=== PATIENT | male | born 1980 | race American Indian/Alaskan Native ===

== ENCOUNTER 2017-01-17 19:32 | Emergency (ER) | payer MEDICARE, MEDICAID ==
[2017-01-17 19:43] VITALS: BP 125/60; PULSE 64; RESP 18; TEMP 97.5; O2SAT 100
--- NOTE | 2017-01-17 20:40 | ED PDOC ---
HPI: Headache Time Seen by Provider: 01/17/17 19:44 Chief Complaint (Nursing): Headache Chief Complaint (Provider): Headache History Per: Patient History/Exam Limitations: no limitations Onset/Duration Of Symptoms: Days (2) Current Symptoms Are (Timing): Still Present Additional Complaint(s): Norman Jorge is a 36 y/o male presenting to the ER on 01/17/2017 with episodes of intermittent headaches for two days. Patient reports headache, which is localized to the right superorbital region, is associated with a clear nasal discharge. He offers no other medical or physical complaints at this time. Past Medical History Reviewed: Historical Data, Nursing Documentation, Vital Signs Vital Signs: Last Vital Signs Temp 97.5 F L 01/17/17 19:40 Pulse 64 01/17/17 19:40 Resp 18 01/17/17 19:40 BP 125/60 01/17/17 19:40 Pulse Ox 100 01/17/17 19:40 - Medical History PMH: No Chronic Diseases - Surgical History Surgical History: No Surg Hx - Family History Family History: States: Unknown Family Hx - Social History Current smoker - smoking cessation education provided: No Alcohol: Occasional Drugs: Denies - Home Medications Home Medications: Ambulatory Orders Medication Instructions Recorded Doxycycline Hyclate [Doxycycline] 100 mg PO BID #14 cap 03/31/15 Ibuprofen [Motrin] 600 mg PO Q8 #30 tab 05/24/15 Oxycodone HCl/Acetaminophen 1 tab PO Q6 PRN #10 tab 05/24/15 [Percocet 325 mg-5 mg] Erythromycin 0.5% [Erythromycin 3.5 gm OP BID #1 tube 06/28/16 0.5% Oint] Ibuprofen [Motrin Tab] 800 mg PO Q6H PRN #20 tab 01/17/17 - Allergies Allergies/Adverse Reactions: Allergies Allergy/AdvReac Type Severity Reaction Status Date / Time No Known Allergies Allergy Verified 06/28/16 17:07 Review of Systems ROS Statement: Except As Marked, All Systems Reviewed And Found Negative ENT: Positive for: Nose Discharge Neurological: Positive for: Headache. Negative for: Weakness, Numbness, Dizziness Physical Exam - Reviewed Nursing Documentation Reviewed: Yes Vital Signs Reviewed: Yes - Physical Exam Appears: Positive for: Non-toxic, No Acute Distress Head Exam: Positive for: ATRAUMATIC, NORMOCEPHALIC Skin: Positive for: Normal Color. Negative for: Rash Eye Exam: Positive for: Normal appearance Neck: Positive for: Normal Cardiovascular/Chest: Positive for: Regular Rate, Rhythm. Negative for: Murmur Respiratory: Positive for: Normal Breath Sounds. Negative for: Respiratory Distress Extremity: Positive for: Normal ROM. 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 Negative for: Motor/Sensory Deficits - ECG O2 Sat by Pulse Oximetry: 100 Medical Decision Making Medical Decision Makin:44 Initial Impression- 36 y/o male with headaches Initial Plan- * Toradol 15 mg IM Pt will be discharged routinely with rx for Ibuprofen after reporting improvement in pain upon re-evaluation. Pt will schedule follow-up within 2-3 days. Advised to return if symptoms persist or worsen. Condition is stable for discharge. Clinical Impression- Migraine-cluster headache syndrome Documented by Colby Mcdermott, acting as a scribe for Leticia Rucker PA-C All medical record entries made by the Scribe were at my direction and personally dictated by me. I have reviewed the chart and agree that the record accurately reflects my personal performance of the history, physical exam, medical decision making, and the department course for this patient. I have also personally directed, reviewed, and agree with the discharge instructions and disposition. Disposition - Clinical Impression Clinical Impression: Migraine-cluster headache syndrome - Patient ED Disposition Is Patient to be Admitted: No Counseled Patient/Family Regarding: Diagnosis, Need For Followup, Rx Given - Disposition Disposition: Routine/Home Disposition Time: 20:35 Condition: GOOD Prescriptions: Ibuprofen [Motrin Tab] 800 mg PO Q6H PRN #20 tab PRN Reason: Pain Instructions: Cluster Headache (ED)
== END 2017-01-17 21:02 | disposition home or self-care (01) ==
LOC: H.ER 19:32
DX: G44.009 Cluster headache syndrome, unspecified, not intractable (principal)
CPT/HCPCS: 96372; 99283; J1885

== ENCOUNTER 2017-02-09 12:57 | Emergency (ER) | payer MEDICARE, MEDICAID ==
[2017-02-09 13:02] VITALS: BMI 25.7
[2017-02-09 13:05] VITALS: BP 113/64; PULSE 60; RESP 18; TEMP 98; O2SAT 99
--- NOTE | 2017-02-09 13:15 | ED PDOC ---
Upper Extremity Pain/Injury Time Seen by Provider: 02/09/17 13:10 Chief Complaint (Nursing): Finger,Hand,&Wrist Chief Complaint (Provider): Left thumb pain History Per: Patient History/Exam Limitations: no limitations Onset/Duration Of Symptoms: Days (x 1 week) Current Symptoms Are (Timing): Still Present Exacerbating Factor(s): Movement Additional Complaint(s): Norman is a 36-year-old male who presents to the ED complaining of left thumb pain with associated swelling after sustaining an injury 1 week ago. Patient noticed the symptoms after [place] He is able to move the finger and hand but describes the pain as worsening when he lifts objects such as a gallon of water. Denies taking any medication for relief of pain. Patient did not report the injury to his employer. PMD: Unknown Past Medical History Reviewed: Historical Data, Nursing Documentation, Vital Signs Vital Signs: Last Vital Signs Temp 98 F 02/09/17 13:02 Pulse 60 02/09/17 13:02 Resp 18 02/09/17 13:02 BP 113/64 02/09/17 13:02 Pulse Ox 99 02/09/17 13:02 - Medical History PMH: No Chronic Diseases - Surgical History Surgical History: No Surg Hx - Family History Family History: States: Unknown Family Hx - Home Medications Home Medications: Ambulatory Orders Medication Instructions Recorded Doxycycline Hyclate [Doxycycline] 100 mg PO BID #14 cap 03/31/15 Ibuprofen [Motrin] 600 mg PO Q8 #30 tab 05/24/15 Oxycodone HCl/Acetaminophen 1 tab PO Q6 PRN #10 tab 05/24/15 [Percocet 325 mg-5 mg] Erythromycin 0.5% [Erythromycin 3.5 gm OP BID #1 tube 06/28/16 0.5% Oint] Ibuprofen [Motrin Tab] 800 mg PO Q6H PRN #20 tab 01/17/17 Naproxen 1 tab PO BID PRN #14 tab 02/09/17 - Allergies Allergies/Adverse Reactions: Allergies Allergy/AdvReac Type Severity Reaction Status Date / Time No Known Allergies Allergy Verified 02/09/17 13:07 Review of Systems ROS Statement: Except As Marked, All Systems Reviewed And Found Negative Musculoskeletal: Positive for: Hand Pain (Left thumb pain and swelling) Physical Exam - Reviewed Nursing Documentation Reviewed: Yes Vital Signs Reviewed: Yes - Physical Exam Appears: Positive for: Well, Non-toxic, No Acute Distress Head Exam: Positive for: ATRAUMATIC, NORMAL INSPECTION, NORMOCEPHALIC Skin: Positive for: Normal Color, Warm, Dry Eye Exam: Positive for: EOMI, Normal appearance, PERRL ENT: Positive for: Normal ENT Inspection Neck: Positive for: Normal, Painless ROM, Supple Extremity: Positive for: Normal ROM (Able to flex and extend at DIP and MCP joints), Tenderness (Tenderness along the lateral aspect of the left thumb), Swelling (Mild swelling noted to the left thumb), Other (Good strength noted with abduction, adduction, flexion, and extension) Neurologic/Psych: Positive for: Alert, Oriented. Negative for: Motor/Sensory Deficits - ECG O2 Sat by Pulse Oximetry: 99 (RA) Pulse Ox Interpretation: Normal - Radiology X-Ray: Interpreted by Me, Viewed By Me Nexus Criteria: Negative (for fracture) - Progress ED Course And Treament: XRY OF THUMB: NO ACUTE FX PLACED IN THUMB SPICA SPLINT Medical Decision Making Medical Decision Making: Time: 13:10 Initial Impression: Left thumb injury Initial Plan: --Pending X-Ray Left Thumb --Patient was offered pain medication and denied Time: 13:40 --X-Ray reviewed by me: negative for fracture --Patient will be provided with splint and instructed to follow up with Hand Surgeon Scribe Attestation: Documented by Stephani Johnson, acting as a scribe for Abdoulaye Bullard PA-C Provider Scribe Attestation: All medical record entries made by the Scribe were at my direction and personally dictated by me. I have reviewed the chart and agree that the record accurately reflects my personal performance of the history, physical exam, medical decision making, and the department course for this patient. I have also personally directed, reviewed, and agree with the discharge instructions and disposition. Disposition - Clinical Impression Clinical Impression: Thumb sprain - Patient ED Disposition Is Patient to be Admitted: No - Disposition Referrals: Caio Carmichael MD [Staff Provider] - Disposition: Routine/Home Disposition Time: 13:58 Condition: FAIR Prescriptions: Naproxen 1 tab PO BID PRN #14 tab PRN Reason: Pain, Moderate (4-7) Instructions: Finger Sprain (ED) Forms: [employer] (Syrian), [facility] ED School/Work Excuse
--- NOTE | 2017-02-09 15:46 | RAD ---
PROCEDURE: Left Thumb radiographs. HISTORY: thumb injury COMPARISON: None. TECHNIQUE: AP radiograph of the left hand, as well as spot oblique and lateral images of thumb were obtained. FINDINGS: LEFT THUMB: Normal left thumb, without fracture or focal lesion. Remainder of the left hand (as seen on the AP view) grossly unremarkable. JOINTS: Normal. SOFT TISSUES: Normal. OTHER FINDINGS: None. IMPRESSION: No evidence of acute fracture or dislocation.
== END 2017-02-09 14:34 | disposition home or self-care (01) ==
LOC: H.ER 12:57
DX: S63.602A Unspecified sprain of left thumb, initial encounter (principal)

== ENCOUNTER 2018-02-19 15:15 | Emergency (ER) | payer MEDICARE, MEDICAID ==
[2018-02-19 15:16] VITALS: BMI 25.7
[2018-02-19 15:41] VITALS: TEMP 98.5; O2SAT 99
[2018-02-19 15:48] VITALS: BP 133/73; PULSE 77; RESP 16
--- NOTE | 2018-02-19 16:19 | ED PDOC ---
HPI: General Adult Time Seen by Provider: 02/19/18 15:58 Chief Complaint (Nursing): Hip Pain Chief Complaint (Provider): right hip pain History Per: Patient Additional Complaint(s): 37 y/o male presents to the ED complaining of right hip pain x 3 months. Patient denies any trauma or injury. He states he saw a doctor for this 2 months ago and was prescribed a pain reliever but it did not help. He is not sure of the name of the med he was given. Patient is able to walk but has pain when doing so. No fever or chills, no numbness or tingling to right leg. PMD: none Past Medical History Reviewed: Historical Data, Nursing Documentation, Vital Signs Vital Signs: Last Vital Signs Temp 98.5 F 02/19/18 15:40 Pulse 77 02/19/18 15:40 Resp 16 02/19/18 15:40 BP 133/73 02/19/18 15:40 Pulse Ox 99 02/19/18 16:22 - Medical History PMH: No Chronic Diseases - Surgical History Surgical History: No Surg Hx - Family History Family History: States: No Known Family Hx - Living Arrangements Living Arrangements: With Family - Social History Current smoker - smoking cessation education provided: No Alcohol: None Drugs: Denies - Home Medications Home Medications: Ambulatory Orders Medication Instructions Recorded Doxycycline Hyclate [Doxycycline] 100 mg PO BID #14 cap 03/31/15 Ibuprofen [Motrin] 600 mg PO Q8 #30 tab 05/24/15 Oxycodone HCl/Acetaminophen 1 tab PO Q6 PRN #10 tab 05/24/15 [Percocet 325 mg-5 mg] Erythromycin 0.5% [Erythromycin 3.5 gm OP BID #1 tube 06/28/16 0.5% Oint] Ibuprofen [Motrin Tab] 800 mg PO Q6H PRN #20 tab 01/17/17 Naproxen 1 tab PO BID PRN #14 tab 02/09/17 Ibuprofen [Motrin Tab] 800 mg PO Q8 PRN #20 tab 02/19/18 predniSONE [Prednisone] 20 mg PO BID #10 tab 02/19/18 - Allergies Allergies/Adverse Reactions: Allergies Allergy/AdvReac Type Severity Reaction Status Date / Time No Known Allergies Allergy Verified 02/09/17 13:07 Review of Systems ROS Statement: Except As Marked, All Systems Reviewed And Found Negative Constitutional: Negative for: Fever Musculoskeletal: Positive for: Other (Right Hip Pain) Physical Exam - Reviewed Nursing Documentation Reviewed: Yes Vital Signs Reviewed: Yes - Physical Exam Appears: Positive for: Well, Non-toxic, No Acute Distress Head Exam: Positive for: ATRAUMATIC Skin: Positive for: Normal Color. Negative for: Rash Eye Exam: Positive for: Normal appearance Cardiovascular/Chest: Positive for: Regular Rate, Rhythm Respiratory: Positive for: Normal Breath Sounds Extremity: Positive for: Other (Mild tenderness to the right lateral hip with full ROM; No redness or erythema, no calf swelling or tenderness, normal distal sensation right lower extremity) Neurologic/Psych: Positive for: Alert, Oriented, Gait (steady). Negative for: Motor/Sensory Deficits - ECG O2 Sat by Pulse Oximetry: 99 (RA) Pulse Ox Interpretation: Normal - Other Rad Right hip x-ray and pelvis X-Ray: Interpreted by Me, Viewed By Me X-Ray Interpretation: no fx, no dis Medical Decision Making Medical Decision Making: Time: 1620 Impression: Right Hip Pain x 3 months Plan: -- Motrin 600 mg PO -- Hip Min 2V W/Pelvis RT XR Patient is aware of x-ray results. Prescriptions given for Motrin and prednisone. Patient referred to orthopedist for follow-up Scribe Attestation: Documented by Tyler Walker, acting as a scribe for Jasmina Steele PA-C. Provider Scribe Attestation: All medical record entries made by the Scribe were at my direction and personally dictated by me. I have reviewed the chart and agree that the record accurately reflects my personal performance of the history, physical exam, medical decision making, and the department course for this patient. I have also personally directed, reviewed, and agree with the discharge instructions and disposition. Disposition - Clinical Impression Clinical Impression: Right hip pain - Patient ED Disposition Is Patient to be Admitted: No Counseled Patient/Family Regarding: Studies Performed, Diagnosis, Need For Followup, Rx Given - Disposition Referrals: Hilda Oscar MD [Staff Provider] - Disposition: Routine/Home Disposition Time: 16:54 Condition: STABLE Additional Instructions: Rest area as much as possible. Take rx meds as directed as needed for pain. Follow up as soon as possible with orthopedist. Prescriptions: Ibuprofen [Motrin Tab] 800 mg PO Q8 PRN #20 tab PRN Reason: Pain, Moderate (4-7) predniSONE [Prednisone] 20 mg PO BID #10 tab Instructions: Hip Pain (DC) Forms: [employer] (Indonesian)
--- NOTE | 2018-02-19 16:54 | RAD ---
Date of service: 02/19/2018 PROCEDURE: Pelvis right hip HISTORY: Pain. No history of recent/ related trauma provided Duration of symptoms 3 months COMPARISON: None TECHNIQUE: Standard protocol for this study/examination. FINDINGS: There are no osseous abnormalities to suggest fracture. The pelvic ring is intact. Preserved femoral-acetabular relationship. Negative study for protrusio, subluxation or dislocation. Degenerative changes: None IMPRESSION: Negative study
== END 2018-02-19 17:16 | disposition home or self-care (01) ==
LOC: H.ER 15:15
DX: M25.551 Pain in right hip (principal)

== ENCOUNTER 2018-06-25 16:48 | Emergency (ER) | payer MEDICARE, MEDICAID ==
[2018-06-25 16:48] VITALS: BMI 25.7
[2018-06-25 17:33] VITALS: BP 111/60; PULSE 82; RESP 16; TEMP 98; O2SAT 98
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
== END 2018-06-25 21:50 | disposition home or self-care (01) ==
LOC: H.ER 16:48
DX: S62.607A Fracture of unspecified phalanx of left little finger, initial encounter for closed fracture (principal); W19.XXXA Unspecified fall, initial encounter; Y93.55 Activity, bike riding

== ENCOUNTER 2018-10-27 22:27 | Emergency (ER) | payer OTHER, MEDICARE, MEDICAID ==
[2018-10-27 22:50] VITALS: BMI 24.6
[2018-10-27 22:52] VITALS: RESP 18
[2018-10-27] MEDS ORDERED: Lidocaine 5% Patch TD STA (22:59)
[2018-10-27] MEDS ORDERED: Lidocaine 5% Patch TD ONE (23:12)
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
[2018-10-28 01:16] LABS: URINE BILIRUBIN NEGATIVE (NEGATIVE); URINE BLOOD NEGATIVE (NEGATIVE); URINE CLARITY CLEAR (Clear); URINE COLOR YELLOW (YELLOW); URINE GLUCOSE (UA) NEG (NEGATIVE); URINE LEUKOCYTE ESTERASE NEG Leu/uL (Negative); URINE PROTEIN NEGATIVE (NEGATIVE)
[2018-10-28 01:52] VITALS: BP 99/58; PULSE 73; TEMP 97.9
[2018-10-28 03:47] VITALS: O2SAT 99
--- NOTE | 2018-10-28 08:23 | CARD ---
APPROVED REPORT Date of service: 10/27/2018 EKG Measurement Heart [id number] <Conclusion> Normal sinus rhythm Normal ECG
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
== END 2018-10-28 01:59 | disposition home or self-care (01) ==
LOC: H.ER 22:27
DX: S39.011A Strain of muscle, fascia and tendon of abdomen, initial encounter (principal)

== ENCOUNTER 2018-11-16 03:09 | Emergency (ER) | payer MEDICARE, MEDICAID ==
[2018-11-16 03:11] VITALS: BMI 24.6
[2018-11-16 03:35] VITALS: BP 102/65; PULSE 89; RESP 18; TEMP 98.4; O2SAT 95
[2018-11-16] MEDS ORDERED: cefTRIAXone (Rocephin) 250 mg Inj IM STA (03:51)
[2018-11-16] MEDS ORDERED: cefTRIAXone (Rocephin) 250 mg Inj ONE (04:29)
--- NOTE | 2018-11-16 04:36 | ED PDOC ---
HPI: Male Pain Time Seen by Provider: 11/16/18 03:36 Chief Complaint (Nursing): Male Genitourinary Chief Complaint (Provider): Male Genitourinary History Per: Patient History/Exam Limitations: no limitations Quality Of Discomfort: denies: Burning Additional Complaint(s): 38 years old male presents to ER for evaluation of penile irritation after urinating associated with urinary frequency for couple of days. Patient reports his girlfriend might be cheating on him and gave him something. He states he used condoms but broke. Patient denies burning sensation, abdominal pain, testicular pain and rash. PMD: None provided Past Medical History Reviewed: Historical Data, Nursing Documentation, Vital Signs Vital Signs: Last Vital Signs Temp 98.4 F 11/16/18 03:28 Pulse 89 11/16/18 03:28 Resp 18 11/16/18 03:28 BP 102/65 11/16/18 03:28 Pulse Ox 95 11/16/18 03:28 Primary Care Provider: Non [facility] Provider, - Medical History PMH: No Chronic Diseases Denies: Chronic Kidney Disease - Surgical History Surgical History: No Surg Hx - Family History Family History: States: Unknown Family Hx - Home Medications Home Medications: Ambulatory Orders Medication Instructions Recorded Doxycycline Hyclate [Doxycycline] 100 mg PO BID #14 cap 03/31/15 Ibuprofen [Motrin] 600 mg PO Q8 #30 tab 05/24/15 Oxycodone HCl/Acetaminophen 1 tab PO Q6 PRN #10 tab 05/24/15 [Percocet 325 mg-5 mg] Erythromycin 0.5% [Erythromycin 3.5 gm OP BID #1 tube 06/28/16 0.5% Oint] Ibuprofen [Motrin Tab] 800 mg PO Q6H PRN #20 tab 01/17/17 Naproxen 1 tab PO BID PRN #14 tab 02/09/17 Ibuprofen [Motrin Tab] 800 mg PO Q8 PRN #20 tab 02/19/18 predniSONE [Prednisone] 20 mg PO BID #10 tab 02/19/18 Ibuprofen [Motrin Tab] 800 mg PO Q8 PRN #21 tab 06/25/18 Ibuprofen [Motrin Tab] 600 mg PO Q6 PRN #20 tab 10/28/18 Lidocaine 5% [Lidoderm] 1 patch TOP QOTHERDAY PRN #10 patch 10/28/18 Nitrofurantoin Macrocrystals 100 mg PO BID 7 Days #14 cap 11/16/18 [Macrobid] - Allergies Allergies/Adverse Reactions: Allergies Allergy/AdvReac Type Severity Reaction Status Date / Time No Known Allergies Allergy Verified 11/16/18 03:35 Review of Systems ROS Statement: Except As Marked, All Systems Reviewed And Found Negative Gastrointestinal: Negative for: Abdominal Pain Genitourinary Male: Positive for: Frequency, Other (Penile irritation. No testicular pain). Negative for: Penile Discharge, Rash Physical Exam - Reviewed Nursing Documentation Reviewed: Yes Vital Signs Reviewed: Yes - Physical Exam Appears: Positive for: Well, No Acute Distress Head Exam: Positive for: ATRAUMATIC, NORMOCEPHALIC Skin: Positive for: Normal Color, Warm, Dry Cardiovascular/Chest: Positive for: Regular Rate, Rhythm. Negative for: Murmur Respiratory: Positive for: Normal Breath Sounds. Negative for: Respiratory Distress Gastrointestinal/Abdominal: Positive for: Normal Exam, Soft. Negative for: Tenderness Male Genital Exam: Positive for: normal genitalia, no hernia, epididymal tenderness. Negative for: erythema, hernia mass, inguinal tenderness, testicular tenderness (R), testicular tenderness (L), urethral discharge Back: Positive for: Normal Inspection. Negative for: L CVA Tenderness, R CVA Tenderness Extremity: Positive for: Normal ROM. 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 - ECG O2 Sat by Pulse Oximetry: 95 (RA) Pulse Ox Interpretation: Normal Medical Decision Making Medical Decision Making: Time: 350 Initial plan: Test and treat for STDs -- UA --GC/Chlamydia --Rocephin --Zithromax 5:13 pt's UA positive nitrates, will treat with antibiotics Discussed results, diagnosis, treatment, return precautions and f/u with pt who is understanding, in agreement and stable for dc Scribe Attestation: Documented by Estefania Zarco, acting as a scribe for Giacomo Cade MD. Provider Scribe Attestation: All medical record entries made by the Scribe were at my direction and personally dictated by me. I have reviewed the chart and agree that the record accurately reflects my personal performance of the history, physical exam, medical decision making, and the department course for this patient. I have also personally directed, reviewed, and agree with the discharge instructions and disposition. Disposition - Clinical Impression Clinical Impression: Urinary tract infection, Dysuria - Patient ED Disposition Is Patient to be Admitted: No Counseled Patient/Family Regarding: Studies Performed, Diagnosis, Need For Followup, Rx Given - Disposition Referrals: [facility] [Outside] Disposition: Routine/Home Disposition Time: 05:15 Condition: STABLE Additional Instructions: The emergency medical care you received today was directed at your acute symptoms. If you were prescribed any medication, please fill it and take as directed. It may take several days for your symptoms to resolve. Return to the Emergency Department if your symptoms worsen, do not improve, or if you have any other problems. Please contact your doctor in 2 days for re-evaluation and follow up / or call one of the physicians/clinics you have been referred to that are listed on the Patient Visit Information form that is included in your discharge packet. Bring any paperwork you were given at discharge with you along with any medications you are taking to your follow up visit. Our treatment cannot replace ongoing medical care by a primary care provider (PCP) outside of the emergency departm ent. Prescriptions: Nitrofurantoin Macrocrystals [Macrobid] 100 mg PO BID 7 Days #14 cap Instructions: Urinary Tract Infections in Adults, Dysuria, Adult (DC) Print Language: MACEDONIAN - POA Present On Arrival: None
[2018-11-16 04:54] LABS: URINE BACTERIA RARE (<OCC); URINE BILIRUBIN NEGATIVE (NEGATIVE); URINE BLOOD NEGATIVE (NEGATIVE); URINE CLARITY SLIGHTY-CLOUDY (Clear); URINE COLOR AMBER (YELLOW); URINE GLUCOSE (UA) NEG (NEGATIVE); URINE LEUKOCYTE ESTERASE NEG Leu/uL (Negative); URINE PROTEIN NEGATIVE (NEGATIVE)
== END 2018-11-16 05:50 | disposition home or self-care (01) ==
LOC: H.ER 03:09
DX: N39.0 Urinary tract infection, site not specified (principal)
CPT/HCPCS: 81003; 87491; 87591; 96372; 99282; J0696